=== PATIENT | female | born 1990 | race Caucasian/White ===

== ENCOUNTER 2017-07-11 17:06 | Emergency (ER) | payer OTHER ==
--- NOTE | 2017-07-11 17:15 | PDOC ---
Rapid Medical Evaluation Time Seen by Provider: 07/11/17 17:11 Medical Evaluation: Allergies Allergy/AdvReac Type Severity Reaction Status Date / Time Latex, Natural Rubber Allergy Severe Hives Verified 09/07/15 21:51 tuberculin, purified protein Allergy Verified 09/07/15 21:51 deriva 07/11/17 17:11 I have performed a brief in-person evaluation of this patient. the patient presents with a chief complaint of s/p fall this am on steps while carrying laundry Reports , +home test with lower abdominal cramping intermittently. Denies head injury or loss of Pertinent physical exam findings: appears well multiple bruising to both upper arms, able to pronate and supinate arms I have ordered the following: labs ordered, urinalysis The patient will proceed to the
[2017-07-11 17:17] VITALS: BP 136/85; PULSE 87; TEMP 97.6; BMI 24.2
--- NOTE | 2017-07-11 17:53 | PDOC ---
History of Present Illness - General Chief Complaint: Pain Stated Complaint: FALL INJURY (7 WKS ),ABD PAIN Time Seen by Provider: 07/11/17 17:11 History Source: Patient, Spouse Exam Limitations: No Limitations - History of Present Illness Initial Comments: 07/11/17 17:48 Patient states was carrying a bag of laundry over her shoulder this morning when she lost her footing on the stairs and fell/tumbled down approximately 7 stairs. States bilateral arms took the brunt of her fall and did not have not have any head injury however patient had some abdominal complaints and pain. Took home test a few days ago that was positive. Her LMP was May 28. 3 para 1 spontaneous AB 1 . Denies vaginal bleeding or drainage after injury but was concerned about the cramping in her lower abdomen. Severity: reports: mild, moderate Pain Location: reports: pelvis, upper extremity Method of Injury: Yes: fall Loss of Consciousness: no loss of consciousness Associated Symptoms (Fall): abdominal pain Past History - Travel Traveled outside of the country in the last 30 days: No Close contact w/someone who was outside of country & ill: No - Past Medical History Allergies/Adverse Reactions: Allergies Allergy/AdvReac Type Severity Reaction Status Date / Time Latex, Natural Rubber Allergy Severe Hives Verified 07/11/17 17:11 tuberculin, purified protein Allergy Verified 07/11/17 17:11 deriva Anemia: No Asthma: No Cancer: No Cardiac Disorders: No CVA: No COPD: No CHF: No Dementia: No Diabetes: No GI Disorders: No Disorders: No HTN: No Hypercholesterolemia: No Liver Disease: No Seizures: No Thyroid Disease: No Other medical history: DENIES. - Surgical History Abdominal Surgery: No Appendectomy: No Cardiac Surgery: No Cholecystectomy: No Lung Surgery: No Neurologic Surgery: No Orthopedic Surgery: Yes (RIGHT ANKLE ORIF 06/23/12) - Suicide/Smoking/Psychosocial Hx Smoking Status: No Smoking History: Never smoked Have you smoked in the past 12 months: No Number of Cigarettes Smoked Daily: 0 Hx Alcohol Use: No Drug/Substance Use Hx: No Substance Use Type: None Hx Substance Use Treatment: No Review of Systems - Review of Systems Able to Perform ROS?: Yes Is the patient limited Korean proficient: Yes Constitutional: Yes: See HPI. No: Symptoms Reported, Fever, Malaise HEENTM: Yes: See HPI. No: Symptoms Reported Respiratory: Yes: See HPI. No: Symptoms reported Musculoskeletal: Yes: Symptoms Reported, See HPI Integumentary: Yes: Symptoms Reported, See HPI, Bruising Neurological: Yes: Symptoms reported All Other Systems: Reviewed and Negative *Physical Exam - Vital Signs Last Vital Signs Temp Pulse Resp BP Pulse Ox 97.6 F 87 19 136/85 100 07/11/17 17:12 07/11/17 17:12 07/11/17 17:12 07/11/17 17:12 07/11/17 17:12 - Physical Exam General Appearance: Yes: Nourished, Appropriately Dressed, Apparent Distress, Mild Distress HEENT: positive: ANJANA, Normal ENT Inspection, TMs Normal, Pharynx Normal Neck: positive: Supple. negative: Tender Respiratory/Chest: positive: Lungs Clear, Normal Breath Sounds. negative: Chest Tender Gastrointestinal/Abdominal: positive: Tender, Soft, Rebound Musculoskeletal: positive: Decreased Range of Motion. negative: Normal Inspection, CVA Tenderness Extremity: positive: Normal Capillary Refill, Tender, Swelling. negative: Normal Inspection, Normal Range of Motion Integumentary: positive: Pale, Swelling (to left hand / 5th and 4th metacarpal tenderness/ but able to make fist/ grasp/ flex and extend fingers against resisitance. Right hand with multiple bruises and swelling . ), Ecchymosis, Bruising Neurologic: positive: vial gauger II-XII NML intact, Fully Oriented, Alert, Normal Mood/ Affect, Normal Response, Motor Strength 5/5 ED Treatment Course - LABORATORY CBC & Chemistry Diagram: 07/11/17 18:24 Progress Note - Progress Note Progress Note: Is post fall with multiple bruises contusions. Abdominal pain with early , will obtain ultrasound and labs Medical Decision Making - Medical Decision Making 07/11/17 19:15 t/o to ananth dukes NP fopr remainder of care . *DC/Admit/Observation/Transfer Diagnosis at time of Disposition: Hand pain, left, Pelvic pain during in first trimester, antepartum - Discharge Dispostion Disposition: HOME Condition at time of disposition: Stable - Referrals Referrals: Rafiq Avila MD [Staff Physician] - Call tomorrow - Patient Instructions Printed Discharge Instructions: DI for Hand Injury Additional Instructions: rest , ICE, elevate and keep in splint follow up with your doctor as soon as possible. return to the ER if symptoms worsen. - Post Discharge Activity Forms/Work/School Notes: Back to Work
[2017-07-11 18:30] LABS: BASO % 0.4 % (0-2.0); EOS % 2.5 % (0-4.5); HEMATOCRIT 38.3 % (32.4-45.2); HEMOGLOBIN 12.4 GM/dL (10.7-15.3); LYMPH % 26.4 % (8-40); MCH 25.3 pg (25.7-33.7); MCHC 32.4 g/dl (32.0-36.0); MEAN CELL VOLUME 78.1 fl (80-96); MONO % 9.9 % (3.8-10.2); NEUT % 60.8 % (42.8-82.8); PLATELET COUNT 281 K/MM3 (134-434); RBC 4.91 M/mm3 (3.60-5.2); RDW 16.7 % (11.6-15.6); WHITE BLOOD COUNT 9.7 K/mm3 (4.0-10.0)
[2017-07-11 18:37] LABS: URINE APPEARANCE CLOUDY; URINE BILIRUBIN NEGATIVE (<2.0 mg/dL); URINE COLOR YELLOW; URINE GLUCOSE (UA) NEGATIVE (NEGATIVE); URINE KETONE NEGATIVE (NEGATIVE); URINE LEUK ESTERASE NEGATIVE (NEGATIVE); URINE NITRITE NEGATIVE (NEGATIVE); URINE PROTEIN NEGATIVE (NEGATIVE); URINE UROBILINOGEN NEGATIVE mg/dL (0.2-1.0)
--- NOTE | 2017-07-11 19:29 | PDOC ---
*Physical Exam - Vital Signs Last Vital Signs Temp Pulse Resp BP Pulse Ox 97.6 F 87 19 136/85 100 07/11/17 17:12 07/11/17 17:12 07/11/17 17:12 07/11/17 17:12 07/11/17 17:12 - Physical Exam General Appearance: Yes: Appropriately Dressed Gastrointestinal/Abdominal: positive: Normal Bowel Sounds, Organomegaly Extremity: positive: Other (left metacarpal area erythema and swelling . full rom.) Integumentary: positive: Normal Color, Dry, Warm Neurologic: positive: Fully Oriented, Alert ED Treatment Course - LABORATORY CBC & Chemistry Diagram: 07/11/17 18:24 - ADDITIONAL ORDERS Additional order review: Laboratory Results 07/11/17 18:24 Urine Color Yellow Urine Appearance Cloudy Urine pH 7.0 Ur Specific [place] 1.028 Urine Protein Negative Urine Glucose (UA) Negative Urine Ketones Negative Urine Blood Negative Urine Nitrite Negative Urine Bilirubin Negative Urine Urobilinogen Negative Ur Leukocyte Esterase Negative 07/11/17 18:24 RBC 4.91 D MCV 78.1 L MCHC 32.4 RDW 16.7 H MPV 9.0 Neutrophils % 60.8 Lymphocytes % 26.4 Monocytes % 9.9 Eosinophils % 2.5 Basophils % 0.4 Medical Decision Making - Medical Decision Making 07/11/17 21:59 US: + IUP Xray: neg. official read pending splint ortho follow *DC/Admit/Observation/Transfer Diagnosis at time of Disposition: Hand pain, left, Pelvic pain during in first trimester, antepartum - Discharge Dispostion Disposition: HOME Condition at time of disposition: Stable - Referrals Referrals: Rafiq Avila MD [Staff Physician] - Call tomorrow - Patient Instructions Printed Discharge Instructions: DI for Hand Injury Additional Instructions: rest , ICE, elevate and keep in splint follow up with your doctor as soon as possible. return to the ER if symptoms worsen. - Post Discharge Activity Forms/Work/School Notes: Back to Work
== END 2017-07-11 22:26 | disposition home or self-care (01) ==
LOC: JER 17:06
DX: O99.89 Other specified diseases and conditions complicating pregnancy, childbirth and the puerperium (principal); R10.2 Pelvic and perineal pain; S40.022A Contusion of left upper arm, initial encounter; S40.021A Contusion of right upper arm, initial encounter; W10.8XXA Fall (on) (from) other stairs and steps, initial encounter; Y93.89 Activity, other specified; Y99.8 Other external cause status; Z3A.01 Less than 8 weeks gestation of pregnancy; Y92.018 Other place in single-family (private) house as the place of occurrence of the external cause
CPT/HCPCS: 36415; 73130-TC-LR-FY; 76817-TC; 81003; 84702; 85025; 86850; 86900; 86901; 99281-25

== ENCOUNTER 2017-08-14 12:27 | Emergency (ER) | payer OTHER ==
[2017-08-14 12:42] VITALS: BMI 25.0
[2017-08-14 13:13] LABS: BASO % 0.4 % (0-2.0); EOS % 2.4 % (0-4.5); MCH 25.8 pg (25.7-33.7); MCHC 32.5 g/dl (32.0-36.0); MEAN CELL VOLUME 79.3 fl (80-96); MEAN PLT VOLUME 8.5 fl (7.5-11.1); MONO % 10.1 % (3.8-10.2); NEUT % 63.1 % (42.8-82.8); PLATELET COUNT 289 K/MM3 (134-434); RBC 4.66 M/mm3 (3.60-5.2); RDW 17.1 % (11.6-15.6); URINE APPEARANCE CLEAR; URINE BILIRUBIN NEGATIVE (<2.0 mg/dL); URINE COLOR STRAW; URINE GLUCOSE (UA) NEGATIVE (NEGATIVE); URINE KETONE NEGATIVE (NEGATIVE); URINE LEUK ESTERASE NEGATIVE (NEGATIVE); URINE NITRITE NEGATIVE (NEGATIVE); URINE PROTEIN NEGATIVE (NEGATIVE); URINE UROBILINOGEN NEGATIVE mg/dL (0.2-1.0); WHITE BLOOD COUNT 9.1 K/mm3 (4.0-10.0)
[2017-08-14 13:41] LABS: ALBUMIN 3.8 g/dl (3.4-5.0); ANION GAP 7 (8-16); BILIRUBIN,TOTAL 0.4 mg/dL (0.2-1.0); BLOOD UREA NITROGEN 9 mg/dL (7-18); CALCIUM 8.6 mg/dL (8.5-10.1); CHLORIDE 106 mmol/L (98-107); CO2 25 mmol/L (21-32); CREATININE 0.5 mg/dL (0.55-1.02); GLUCOSE,RANDOM 62 mg/dL (74-106); POTASSIUM 3.8 mmol/L (3.5-5.1); SGOT/AST 11 U/L (15-37); SGPT/ALT 18 U/L (12-78); SODIUM 138 mmol/L (136-145); TOT PROT 7.6 g/dl (6.4-8.2)
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
[2017-08-14 13:56] LABS: ALK PHOS 48 U/L (45-117)
[2017-08-14] MEDS ORDERED: RHO(D) IMMUNE GLOBULIN 1,500 UNIT DISP.SYRIN IM ONE (15:51)
[2017-08-14 17:34] VITALS: BP 114/75; PULSE 75; TEMP 98.2
== END 2017-08-14 17:11 | disposition home or self-care (01) ==
LOC: JER 12:27
PROC: 3E023GC Introduction of Other Therapeutic Substance into Muscle, Percutaneous Approach (ICD-10-PCS; principal; 2017-08-14)
DX: O26.891 Other specified pregnancy related conditions, first trimester (principal); Z3A.10 10 weeks gestation of pregnancy; H72.92 Unspecified perforation of tympanic membrane, left ear
CPT/HCPCS: 36415; 76817-TC; 80053; 81003; 84702; 85025; 86850; 86900; 86901; 86999; 87086; 99282-25; J1561

== ENCOUNTER 2020-12-19 06:11 | Emergency (ER) | payer OTHER ==
[2020-12-19 06:25] VITALS: BP 118/82; PULSE 82; TEMP 98.1; BMI 24.2
[2020-12-19] MEDS ORDERED: ACETAMINOPHEN 325 MG TABLET (FP) PO ONE (06:38)
[2020-12-19] MEDS ORDERED: ACETAMINOPHEN 325 MG TABLET (FP) ONE (07:41)
== END 2020-12-19 11:24 | disposition home or self-care (01) ==
LOC: JER 06:11
DX: G50.1 Atypical facial pain (principal); W18.30XA Fall on same level, unspecified, initial encounter; Y04.8XXA Assault by other bodily force, initial encounter
CPT/HCPCS: 70486-TC; 99284-25